=== PATIENT | female | born 1975 | race Hispanic/Latino ===

== ENCOUNTER → 2024-05-14 | Day surgery (SDC) | payer OTHER ==
[~2024-05-14] MED LIST: FISH OIL 1,0001 EAC7 PO; HYOSCYAMINE SULFATE 0.5 MG/ML INJ ONE; LIDOCAINE HCL 2% LOCAL INJ 5 ML SDV VIAL INJ ONE; MAGNESIUM OXID400 MG PO; MOUNJARO2.5 MG/0.5 SC; PROPOFOL IV EMULSION 10 MG/ML 50 ML VIAL IV ONE; VITAMIN D3 COM1 EACH PO
[2024-05-14] MEDS: LACTATED RINGER'S 1,000 ML ONE (09:13)
[2024-05-14 11:29] VITALS: BP 103/75; PULSE 84; RESP 17; TEMP 97; O2SAT 100
== END | disposition home or self-care (01) ==
LOC: OR 07:45
PROVIDERS: ATTEND Internal Medicine Gastroenterology
DX: K59.00 Constipation, unspecified (principal); K62.5 Hemorrhage of anus and rectum; K64.8 Other hemorrhoids; R01.1 Cardiac murmur, unspecified; E11.9 Type 2 diabetes mellitus without complications; E78.5 Hyperlipidemia, unspecified; M54.9 Dorsalgia, unspecified; E66.01 Morbid (severe) obesity due to excess calories; F32.A Depression, unspecified; Z79.85 Long-term (current) use of injectable non-insulin antidiabetic drugs
CPT/HCPCS: 45378; J1980; J2001; J2704; J7121

== ENCOUNTER → 2024-06-03 | Day surgery (SDC) | payer OTHER ==
[~2024-06-03] MED LIST changes: +FENTANYL CITRATE/PF 100MCG/2 ML INJ ONE; -HYOSCYAMINE SULFATE 0.5 MG/ML INJ ONE; -LIDOCAINE HCL 2% LOCAL INJ 5 ML SDV VIAL INJ ONE; +MIDAZOLAM HCL 2 MG/2 ML VIAL ONE; -PROPOFOL IV EMULSION 10 MG/ML 50 ML VIAL IV ONE; +PROPOFOL IV EMULSION 50 ML IV ONE
[2024-06-03] MEDS: LACTATED RINGER'S 1,000 ML ONE (12:06)
[2024-06-03 16:17] VITALS: TEMP 97.7
[2024-06-03 16:45] VITALS: BP 131/82; PULSE 83; RESP 16; O2SAT 99
== END | disposition home or self-care (01) ==
LOC: OR 11:30
PROVIDERS: ATTEND Internal Medicine Gastroenterology
DX: K59.00 Constipation, unspecified (principal); D12.2 Benign neoplasm of ascending colon; K62.5 Hemorrhage of anus and rectum; K64.8 Other hemorrhoids; E11.9 Type 2 diabetes mellitus without complications; E66.01 Morbid (severe) obesity due to excess calories; Z79.84 Long term (current) use of oral hypoglycemic drugs; Z79.85 Long-term (current) use of injectable non-insulin antidiabetic drugs
CPT/HCPCS: 45385; 93005; J2250; J2704; J3010; J7121; 45378